=== PATIENT | female | born 1965 | race Caucasian/White ===

== ENCOUNTER → 2020-01-17 12:32 | Outpatient (CLI) | payer OTHER, SELFPAY ==
[2014-07-28 09:32] VITALS: BMI 29.0
--- NOTE | 2020-01-16 | FLU_PTH ---
PATIENT: ASAD STEVEN LOC: [facility] U#:[id number] AGE/SX: 59/F ROOM: RE01/17/[address]: Dr. Fermin Quiñones MD : 1965 BED: DIS: SPEC #: [id number] RECD: 01/17/20 12:35 STATUS: ANOOP REQ #: [id number] GEO: 01/16/20 00:[address]: Isidra Sims DEPT: CYTOLOGY RECD BY: Alfredo Downs ENTERED: 01/17/20 12:35 SP TYPE: Fluid OTHR DR: Dr. Fermin Quiñones MD Tissues: A - Thyroid gland, NOS B - Thyroid gland, NOS Procedures: Special Stain Group II Surgery Specimen Level IV Cytospin Fluid Comments: @ Ordering doctor for SSII edited from to DR.LWANG Coe by NOE at 01/18/20 08 @ Ordering doctor for SUIV edited from to DR.LWANG Coe by NOE at 01/18/20 0808 @ Ordering doctor for CYSPIN edited from to DR.LWANG Coe by NOE at 01/18/20 08 @ Submitting doctor edited from to DR.LWANG Coe by NOE at 01/18/20 0808 HEADER OPERATION: Ultrasound-guided fine needle aspiration left thyroid PRE-OP DIAGNOSIS: Thyroid nodules TISSUE SUBMITTED: A - FNA left thyroid fluid for cytology, B - FNA left thyroid 8 slides DIAGNOSIS CYTOLOGY A. Fine needle aspiration, left thyroid nodule (cytospin and cell block): Adequate for evaluation. Negative, consistent with benign follicular nodule with cystic change. B. Fine needle aspiration, left thyroid nodule (smears): Adequate for evaluation. Negative, consistent with benign follicular/colloid nodule. AM:carl 01/18/20 CYTOLOGY STUDY Slides are reviewed. CYTOLOGY GROSS A - Received is 30 ml of brown cloudy fluid labeled with the patient's name and and designated per the requisition as left thyroid. Submitted for cytology preparation including cell block. B - Received are eight smears labeled with the patient's name and designated per the requisition as left thyroid. Submitted for staining. / carl 01/17/20 TC:5 CPT: 31457, 38962, 80782
== END ==
PROVIDERS: PCP Internal Medicine; Visit Provider Internal Medicine
DX: E04.1 Nontoxic single thyroid nodule (principal)
CPT/HCPCS: 88108; 88305; 88313

== ENCOUNTER → 2020-08-07 10:15 | Outpatient (CLI) | payer OTHER, SELFPAY ==
[2014-07-28 09:32] VITALS: BMI 29.0
--- NOTE | 2020-08-07 10:15 | ASPIG_PTH ---
PATIENT: ASAD STEVEN LOC: [facility] U#:[id number] AGE/SX: 59/F ROOM: RE08/07/[address]: Dr. Isidra Sims MD : 1965 BED: DIS: SPEC #: [id number] RECD: 08/07/20 17:12 STATUS: ANOOP REQ #: [id number] GEO: 08/07/20 10:[address]: Isidra Sims DEPT: CYTOLOGY RECD BY: Marylu Escobar ENTERED: 08/08/20 07:33 SP TYPE: ASP OUT OTHR DR: Dr. Fermin Quiñones MD Tissues: Thyroid gland, NOS Procedures: FNA Specimen Adequacy Special Stain Group II Surgery Specimen Level IV Cytology Other HEADER OPERATION: Ultrasound-guided fine needle aspiration of left thyroid PRE-OP DIAGNOSIS: Thyroid nodules TISSUE SUBMITTED: A - FNA left thyroid fluid for cytology, B - FNA left thyroid x8 slides DIAGNOSIS CYTOLOGY A. Left thyroid nodule fluid, ultrasound-guided FNA (cytospin and cell block): Consistent with benign follicular/colloid nodule with cystic changes. Adequate for evaluation. B. Left thyroid nodule, ultrasound-guided FNA (smears): Consistent with benign follicular/colloid nodule with cystic changes. Adequate for evaluation. See comment. SANJAY:carl 08/09/20 COMMENT Correlation with clinical, radiologic findings and appropriate follow up are necessary. Please make reference to previous specimen ([id number] A & B) fine needle aspiration, left thyroid nodule (smears, cytospin and cell block) with diagnosis of adequate for evaluation, negative, consistent with benign follicular/colloid nodule. CYTOLOGY STUDY Slides are reviewed. CYTOLOGY GROSS A - Received is 30 ml of brown cloudy fluid labeled with the patient's name and and designated per the requisition as left thyroid. Submitted for cytology preparation including cell block. B - Received are eight smears labeled with the patient's name and designated per the requisition as left thyroid. Submitted for staining. / carl 08/08/20 TC:5 CPT: 44791, 19314, 57866
== END ==
PROVIDERS: PCP Internal Medicine; Referring Provider Surgery; Visit Provider Surgery
DX: E04.1 Nontoxic single thyroid nodule (principal)
CPT/HCPCS: 88161; 88172; 88305; 88313

== ENCOUNTER → 2021-04-04 10:52 | Outpatient (CLI) | payer OTHER, SELFPAY ==
--- NOTE | 2021-04-04 11:35 | BRBX_PTH ---
PATIENT: ASAD STEVEN LOC: [facility] U#:[id number] AGE/SX: 59/F ROOM: RE04/04/[address]: Dr. Sharif Petersen MD : 1965 BED: DIS: SPEC #: [id number] RECD: 04/04/21 12:12 STATUS: ANOOP NOREEN #: [id number] GEO: 04/04/21 11:[address]: Sharif Petersen DEPT: SURGICAL PATHOLOGY RECD BY: Marylu Escobar ENTERED: 04/04/21 12:45 SP TYPE: BREAST BX OTHR DR: Dr. Fermin Quiñones MD Tissues: Left breast, NOS Procedures: Surgery Specimen Level IV HEADER OPERATION: Left breast stereotactic biopsy PRE-OP DIAGNOSIS: Grouped linear calcifications in the left breast, 12 o?clock middle depth TISSUE SUBMITTED: Left breast core and tissue ISCHEMIC TIME: 1 minute FIXATION TIME: 8 hours MICROSCOPIC DIAGNOSIS Left breast, calcification 12 o?clock middle depth, stereotactic core biopsy: Focal fibrocystic changes and intraductal hyperplasia without atypia. Negative for malignancy. See comment. SANJAY:carl 04/05/2021 COMMENT A minute fragment of hyalinized tissue with microcalcifications is noted, may represent hyalinized fibroadenoma. Correlation with clinical, radiologic findings and appropriate follow up are necessary. This case has been reviewed in consultation with Dr. Roth who concurs with the above diagnosis. MICROSCOPIC DESCRIPTION Slides are reviewed. GROSS DESCRIPTION Received in fixative is one container labeled with the patient name and designated left breast. The specimen consists of multiple elongated fragments of hopper-yellow fibroadipose tissue that in aggregate measure 7.5 x 3 x 0.3 cm. The entire specimen is submitted in three cassettes. / Josué 04/04/21 TC:5 CPT: 29766
--- NOTE | 2021-04-04 12:19 | PCM.OPRPT ---
Problems Associated Problem List Diagnoses (1) Microcalcification of left breast on mammogram: Report of Operation Date of Procedure: 04/04/21 Pre-Operative Diagnosis: Microcalcifications of left breast Post-Operative Diagnosis: Same Surgery/Procedure Performed:: Left stereotactic breast biopsy Surgeon: Sharif Petersen personal lines underwriter: None Type of Anesthesia: Local Specimen's removed: Left breast biopsy Drains: None Estimated Blood Loss (mL): < 5 cc Description of Procedure: Patient was brought into the mammography unit. Placed in the prone position on the fissure table. The left breast was brought down through the opening. Cc view was obtained. Microcalcifications were identified. ?15 degree views were obtained. I targeted on the scalp removing the second image. I prepped the breast with Betadine. I injected 1% lidocaine plain. Skin mitali was made. Needle was placed in the prefire position. 2 more stereo views were obtained showing the area to be adequately targeted. Fired the needle. Took 360 degrees circumferential biopsies. X-ray my specimen. Microcalcifications were present. Back the needle off [address] Placed a petite clip in the biopsy cavity. Needle was removed. X-ray showed the clip to be in good placement and all of the microcalcifications to be gone. Steri-Strips were applied sterile dressings were applied and the patient tolerated the procedure well. Admit VTE Documentation VTE Present on Admission: No VTE Mechan Device Prophylaxis: None VTE Pharm Prophylaxis ordered?: No Reason prophylaxis not ordered:: Treatment Not Indicated
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
== END ==
PROVIDERS: PCP Internal Medicine; Referring Provider Surgery; Visit Provider Surgery
DX: D24.2 Benign neoplasm of left breast (principal); I10 Essential (primary) hypertension; E78.5 Hyperlipidemia, unspecified; J45.909 Unspecified asthma, uncomplicated; Z79.84 Long term (current) use of oral hypoglycemic drugs; Z79.899 Other long term (current) drug therapy
CPT/HCPCS: 19081; 88305; A4648